=== PATIENT | female | born 1970 | race Caucasian/White ===

== ENCOUNTER 2020-06-19 07:08 | Inpatient (IN) | payer OTHER ==
[~2020-06-19] VITALS: Ht 162.6 cm; Wt 68.2 kg
[~2020-06-19 07:08] MED LIST: AMLODIPINE BES2.5 MG PO; ATIVAN1 MG IM; BISCOLAX10 MG PR; DECADRON4 MG PO; DIAZEPAM IM; H2O GT; IPRAT-ALBUT 0.5-3 ML INH; JEVITY 1.2 CA1000 ML GT; KEPPRA 100100 MG/1 M GT; LEVAQUIN500 MG GT; LEVAQUIN500 MG PO; LEVAQUIN750 MG PO; LEVOFLOXAC500 MG/100 IV; LEVOFLOXACIN250 MG PO; LORAZEPAM1 MG IM; MIRALAX17 GM GT; MYCOSTATIN POWD15 GM TOP; OMEPRAZOLE20 M1 GT; SYNTHROID175 MCG GT; TYLENOL 500 MG500 MG PO; VIMPAT10 MG/1 ML GT; VIMPAT10 MG/1 ML PEG; VIMPAT100 MG GT; VITAMIN D250000 UNIT PO; ZINC OXIDE OINT30 GM EXT
[2020-06-19 07:42] LABS: RED BLOOD COUNT 4.63 M/UL (4.00-5.10)
[2020-06-19 07:50] LABS: WHITE BLOOD COUNT 32.5 K/UL (4.5-11.0)
[2020-06-19 07:57] LABS: BUN/CREATININE RATIO 23 (0-10)
[2020-06-19] MEDS ORDERED: VIMPAT10 MG/1 ML GT (10:06)
[2020-06-19] MEDS ORDERED: LOPRESSOR 25 MG25 MG GT (10:10)
[2020-06-19] MEDS ORDERED: HYDROCODON-ACE1 EAC4 GT (10:17)
[2020-06-19] MEDS ORDERED: PULMICORT0.5 MG/2 M INH (10:17)
[2020-06-19] MEDS ORDERED: ROXANOL SO10 MG/5 ML GT (10:21)
[2020-06-19] MEDS ORDERED: GLYCOPYRROLATE1 MG GT (10:22)
[2020-06-19] MEDS ORDERED: ACETAMINOPHEN650 MG PR (10:23)
[2020-06-19] MEDS ORDERED: FLONASE 0.05% N16 GM (10:24)
[2020-06-19] MEDS ORDERED: ORGANIDIN NR 2200 MG GT (11:56)
[2020-06-19] MEDS ORDERED: ATIVAN0.5 MG GT (22:46)
[2020-06-19] MEDS ORDERED: LACTULOSE20 GM/30 M PO (22:48)
[2020-06-20 06:35] LABS: RED BLOOD COUNT 4.1 M/UL (4.00-5.10); WHITE BLOOD COUNT 20.8 K/UL (4.5-11.0)
[2020-06-20 06:57] LABS: BUN/CREATININE RATIO 21 (0-10)
--- NOTE | 2020-06-20 09:15 | NUR ---
STO SENT TO LAB FOR URINE C&S, MEAGHAN IN LAB STATES OK
--- NOTE | 2020-06-20 09:34 | NUR ---
06/19/20 PATIENT HAD LEVOFED AND NS GOING. IV INFILTRATED AND UNABLE TO ACCESS A NEW ONE. AN ICU NURSE ATTEMPTED AND DID NOT SUCCEED. A DIFFERENT ICU NURSE WITH U/S ATTEMPTED AND DID NOT SUCCEED. DR. ERNST WAS CONSULTED FOR A CENTRAL LINE AND POA WAS CALLED DUE TO THE PATIENT BEING UNABLE TO CONSENT. I EXPLAINED TO THE POA WHAT A CENTRAL LINE WAS AND ASKED IF SHE WOULD CONSENT TO A CENTRAL LINE AND POA STATED "NO, WE WANT THE PATIENT TO GO ON TO BE WITH THE LORD". I AGAIN ASKED THE POA IF THEY WANTED A CENTRAL LINE AND THE POA REFUSED THE CENTRAL LINE. DR. ERNST WAS ON THE FLOOR AND I INFORMED HIM THAT A CENTRAL LINE WAS NO LONGER NEEDED. TWO NURSES WITH ULTRASOUND WERE ABLE TO GET 2 DIFFERENT IVS IN PATIENT SO LEVOFED AND FLUIDS COULD BE STARTED AGAIN. I ASSESSED BOTH IVS. THEY HAD GOOD BLOOD RETURN AND FLUSHED WELL. NO REDNESS OR EDEMA AROUND THE SITE. DRESSING IS TRANSPARENT AND CLEAN, DRY, AND INTACT.
[2020-06-21 04:40] LABS: HEMOGLOBIN 11.4 gm/dl (12.3-15.3)
[2020-06-21 04:41] LABS: RED BLOOD COUNT 3.59 M/UL (4.00-5.10); WHITE BLOOD COUNT 10.9 K/UL (4.5-11.0)
[2020-06-21 05:02] LABS: BUN/CREATININE RATIO 24 (0-10)
[2020-06-22 02:37] LABS: BUN/CREATININE RATIO 13 (0-10)
[2020-06-22 02:52] LABS: HEMOGLOBIN 11.6 gm/dl (12.3-15.3); RED BLOOD COUNT 3.71 M/UL (4.00-5.10); WHITE BLOOD COUNT 11.6 K/UL (4.5-11.0)
[2020-06-23 05:15] LABS: HEMOGLOBIN 11.8 gm/dl (12.3-15.3); RED BLOOD COUNT 3.72 M/UL (4.00-5.10)
[2020-06-23 05:17] LABS: WHITE BLOOD COUNT 8.5 K/UL (4.5-11.0)
[2020-06-23 05:26] LABS: BUN/CREATININE RATIO 17 (0-10)
[2020-06-24 04:42] LABS: HEMOGLOBIN 13.1 gm/dl (12.3-15.3); WHITE BLOOD COUNT 9.4 K/UL (4.5-11.0)
[2020-06-24 04:43] LABS: RED BLOOD COUNT 4.1 M/UL (4.00-5.10)
[2020-06-24 05:18] LABS: BUN/CREATININE RATIO 29 (0-10)
[2020-06-24] MEDS ORDERED: [UNRECOGNIZED DRUG - OTHER] IM (10:57)
[2020-06-24] MEDS ORDERED: ATIVAN IM (10:57)
[2020-06-24] MEDS ORDERED: ATIVAN0.5 MG GT (10:57)
[2020-06-26 03:42] LABS: BUN/CREATININE RATIO 23 (0-10)
[2020-06-26] MEDS ORDERED: VIBRAMYCIN50 MG/5 ML PEG (11:36)
== END 2020-06-26 15:40 | DRG 871 ==
LOC: ER1 07:08 → CDU 08:48 → PROG CARE 08:48
PROVIDERS: Emergency Medicine; Physician Assistant Medical; ADMIT Internal Medicine
DX: A41.9 Sepsis, unspecified organism (principal); R65.21 Severe sepsis with septic shock; J69.0 Pneumonitis due to inhalation of food and vomit; J96.01 Acute respiratory failure with hypoxia; E87.2 Acidosis; G93.1 Anoxic brain damage, not elsewhere classified; G40.909 Epilepsy, unspecified, not intractable, without status epilepticus; E87.6 Hypokalemia; E03.9 Hypothyroidism, unspecified; K21.9 Gastro-esophageal reflux disease without esophagitis; Z66 Do not resuscitate; Z88.0 Allergy status to penicillin; Z88.2 Allergy status to sulfonamides; Z88.6 Allergy status to analgesic agent
CPT/HCPCS: 36415; 71045; 80048; 80053; 80202; 81001; 82962; 83605; 83690; 83735; 83880; 84132; 85025; 85027; 87040; 87081; 87086; 93005; 94640; 94664; 94760; 96365; 96366; 96372; 96375; 99285; C9113; J1650; J1953; J2185; J2405; J2760; J3370; J7030; J7070; U0002

== ENCOUNTER 2021-04-18 14:33 | Inpatient (IN) | payer OTHER ==
[~2021-04-18] VITALS: Ht 162.6 cm; Wt 49.4 kg
[~2021-04-18 14:33] MED LIST changes: +ACETAMINOPHEN650 MG PR; +ATIVAN IM; +ATIVAN0.5 MG GT; +FLONASE 0.05% N16 GM; +GLYCOPYRROLATE1 MG GT; +HYDROCODON-ACE1 EAC4 GT; +LACTULOSE20 GM/30 M PO; +LOPRESSOR 25 MG25 MG GT; +ORGANIDIN NR 2200 MG GT; +PULMICORT0.5 MG/2 M INH; +ROXANOL SO10 MG/5 ML GT; +VIBRAMYCIN50 MG/5 ML PEG; -ZINC OXIDE OINT30 GM EXT; +[UNRECOGNIZED DRUG - OTHER] IM
[2021-04-18 15:35] LABS: HEMOGLOBIN 14.6 gm/dl (12.3-15.3); RED BLOOD COUNT 4.44 M/UL (4.00-5.10)
[2021-04-18 16:09] LABS: BORDETELLA PARAPERTUSSIS Not Detected (Not Detectd); BORDETELLA PERTUSSIS Not Detected (Not Detectd); CHLAMYDIA PNEUMONIAE Not Detected (Not Detectd); CORONAVIRUS HKU1 Not Detected (Not Detectd); CORONAVIRUS NL63 Not Detected (Not Detectd); CORONOAVIRUS 229E Not Detected (Not Detectd); HUMAN METAPNEUMOVIRUS Not Detected (Not Detectd); HUMAN RHINOVIRUS/ENTEROVIRUS Not Detected (Not Detectd); INFLUENZA A Not Detected (Not Detectd); INFLUENZA B Not Detected (Not Detectd); MYCOPLASMA PNEUMONIAE Not Detected (Not Detectd); PARAINFLUENZA VIRUS 1 Not Detected (Not Detectd); PARAINFLUENZA VIRUS 2 Not Detected (Not Detectd); PARAINFLUENZA VIRUS 3 Not Detected (Not Detectd); PARAINFLUENZA VIRUS 4 Not Detected (Not Detectd); RESPIRATORY SYNCYTIAL VIRUS Not Detected (Not Detectd)
[2021-04-18 16:58] LABS: BUN/CREATININE RATIO 35 (0-10)
[2021-04-18 17:51] LABS: SARS-CoV-2 NOT DETECTED (Not Detectd)
[2021-04-18 17:52] LABS: CORONAVIRUS OC43 DETECTED (Not Detectd)
[2021-04-18] MEDS ORDERED: PHENERGAN 25 MG25 M1 GT (23:22)
[2021-04-18] MEDS ORDERED: VIMPAT10 MG/1 ML GT (23:24)
[2021-04-18] MEDS ORDERED: DIAZEPAM IM (23:28)
[2021-04-19] MEDS ORDERED: ZINC OXIDE60 GM TOP (02:15)
[2021-04-19 05:12] LABS: HEMOGLOBIN 12.9 gm/dl (12.3-15.3); RED BLOOD COUNT 4.02 M/UL (4.00-5.10)
[2021-04-19 05:13] LABS: BUN/CREATININE RATIO 43 (0-10)
[2021-04-19 05:38] LABS: WHITE BLOOD COUNT 16.3 K/UL (4.5-11.0)
[2021-04-19] MEDS ORDERED: IPRAT-ALBUT 0.5-3 ML NEB (15:21)
[2021-04-19] MEDS ORDERED: IPRAT-ALBUT 0.5-3 ML INH (15:22)
[2021-04-19] MEDS ORDERED: NYAMYC60 GM TOP (15:25)
[2021-04-19] MEDS ORDERED: ATIVAN IV/IM2 MG/ML IV (15:31)
--- NOTE | 2021-04-19 18:48 | NUR ---
04/19/21 1850 report called to [facility] to be transferred to room 5105
[2021-04-19] MEDS ORDERED: LOPRESSOR 25 MG25 MG PO (23:25)
[2021-04-19] MEDS ORDERED: ATIVAN1 MG PO (23:26)
[2021-04-19] MEDS ORDERED: MORPHINE SU4 MG/1 ML IV (23:31)
--- NOTE | 2021-04-20 05:01 | NUR ---
TUBE FEED BAG CHANGED.
[2021-04-20 06:37] LABS: HEMOGLOBIN 11.8 gm/dl (12.3-15.3); RED BLOOD COUNT 3.72 M/UL (4.00-5.10)
[2021-04-20 06:40] LABS: WHITE BLOOD COUNT 11.6 K/UL (4.5-11.0)
[2021-04-20 07:15] LABS: BUN/CREATININE RATIO 22 (0-10)
[2021-04-22] MEDS ORDERED: ATIVAN1 MG PO (09:25)
[2021-04-22] MEDS ORDERED: DIAZEPAM IM (09:25)
[2021-04-22] MEDS ORDERED: MORPHINE SU4 MG/1 ML IV (09:25)
[2021-04-22] MEDS ORDERED: ATIVAN IM (09:25)
[2021-04-22] MEDS ORDERED: HYDROCODON-ACE1 EAC4 GT (09:25)
[2021-04-22] MEDS ORDERED: [UNRECOGNIZED DRUG - OTHER] IM (09:25)
== END 2021-04-22 15:45 | DRG 690 ==
LOC: ER1 14:33 → CDU 18:39 → 3 EAST 22:42 → M/S 04-19 21:55
PROVIDERS: Preventive Medicine Occupational Medicine; ADMIT Internal Medicine
DX: N39.0 Urinary tract infection, site not specified (principal); B96.1 Klebsiella pneumoniae [K. pneumoniae] as the cause of diseases classified elsewhere; E87.5 Hyperkalemia; Z66 Do not resuscitate; G40.909 Epilepsy, unspecified, not intractable, without status epilepticus; E03.9 Hypothyroidism, unspecified; K21.9 Gastro-esophageal reflux disease without esophagitis; Z20.822 Contact with and (suspected) exposure to COVID-19; Z88.5 Allergy status to narcotic agent; Z88.0 Allergy status to penicillin; Z88.6 Allergy status to analgesic agent; Z79.899 Other long term (current) drug therapy
CPT/HCPCS: 36415; 36600; 71045; 80048; 80053; 81001; 82009; 82140; 82550; 82553; 82803; 83605; 83690; 83735; 83874; 83880; 84484; 85025; 85652; 86140; 87040; 87077; 87086; 87186; 87633; 93005; 94640; 94664; 94760; 96374; 96375; 99284; J0696; J1956; J7030; U0002